=== PATIENT | female | born 1950 | race Caucasian/White ===

== ENCOUNTER → 2025-07-02 08:38 | Outpatient (REF) | payer OTHER, SELFPAY | LOC: WDC 08:38 | PROVIDERS: ATTENDING PHYSICIAN Family Medicine | DX: N63.12 Unspecified lump in the right breast, upper inner quadrant (principal) | CPT/HCPCS: 76642; 77062; 77066 ==

== ENCOUNTER → 2025-07-09 09:55 | Outpatient (REF) | payer OTHER, SELFPAY ==
--- NOTE | 2025-07-09 13:46 | OID.BR.INTR ---
DENISSED Breast Navigator - Initial
- -
Date of Contact: 07/09/25
Met with patient. Patient given written information on navigator service available at [facility]. Will follow up as needed per protocol.
== END ==
LOC: WDC 09:55
PROVIDERS: ATTENDING PHYSICIAN Family Medicine
DX: N63.14 Unspecified lump in the right breast, lower inner quadrant (principal); N63.22 Unspecified lump in the left breast, upper inner quadrant
CPT/HCPCS: 19083; 88305; 88341; 88342; 88360; A4648

== ENCOUNTER → 2025-08-03 16:23 | Outpatient (REF) | payer OTHER, SELFPAY | LOC: MRI 3T 16:23 | PROVIDERS: ATTENDING PHYSICIAN Surgery; FAMILY PHYSICIAN Family Medicine | DX: C50.912 Malignant neoplasm of unspecified site of left female breast (principal); C50.911 Malignant neoplasm of unspecified site of right female breast; Z17.0 Estrogen receptor positive status [ER+] | CPT/HCPCS: 77049; A9585 ==

== ENCOUNTER → 2025-08-05 12:06 | Outpatient (REF) | payer OTHER, SELFPAY | LOC: PET 12:06 | PROVIDERS: ATTENDING PHYSICIAN Surgery | DX: C50.912 Malignant neoplasm of unspecified site of left female breast (principal); C50.911 Malignant neoplasm of unspecified site of right female breast | CPT/HCPCS: 78815; A9552 ==